=== PATIENT | male | born 1975 | race Caucasian/White ===

== ENCOUNTER → 2018-05-26 | Outpatient (CLI) | payer OTHER ==
[~2018-05-26] MED LIST: ASPI-586 PO; CARV12.52 PO; CHOL500050 PO; HYDR-34 PO; LISI10TA2 PO
--- NOTE | 2018-05-26 16:26 | Diagnostic Imaging Report ---
INDICATION: Hypertension. PA and lateral chest. FINDINGS: There are postop changes from CABG surgery. Heart size and pulmonary vascularity are normal. Lungs are clear. There are no effusions or pneumothoraces. IMPRESSION: No acute abnormalities in the chest. Dictated by: Dictated on workstation # [id number]
[2018-05-26 16:32] LABS: BUN/CREATININE RATIO 12; CALCIUM 9.2 MG/DL (8.5-10.1); CARBON DIOXIDE 22 MMOL/L (21-32); CHLORIDE 105 MMOL/L (98-107); CREATININE SERUM 0.82 MG/DL (0.60-1.30); GFR ESTIMATED > 60; GLUCOSE 108 MG/DL (70-105); POTASSIUM 4.1 MMOL/L (3.6-5.0); SODIUM 137 MMOL/L (135-145)
== END ==
LOC: RAD 15:55
PROVIDERS: ATTEND Internal Medicine Cardiovascular Disease
DX: I10 Essential (primary) hypertension (principal)
CPT/HCPCS: 36415; 71046; 80048

== ENCOUNTER 2018-07-23 07:18 | Outpatient (CLI) | payer OTHER ==
[~2018-07-23] VITALS: Ht 182.9 cm; Wt 142.4 kg
== END 2018-07-23 15:16 | disposition home or self-care (01) ==
LOC: PREOP 07:18
PROVIDERS: ATTEND Orthopaedic Surgery
DX: Z01.818 Encounter for other preprocedural examination (principal)
CPT/HCPCS: 87081

== ENCOUNTER 2018-07-30 06:12 | Day surgery (SDC) | payer OTHER ==
--- NOTE | 2018-07-21 12:01 | HISTORY AND PHYSICAL ---
DATE OF SERVICE: 07/30/2018 ADMISSION HISTORY AND PHYSICAL CHIEF COMPLAINT: Left carpal tunnel release. HISTORY: The patient is a 43-year-old right-hand dominant gentleman with complaints of left hand pain, worse at night and worse with repetitive activities. He underwent an EMG, which showed evidence of carpal tunnel syndrome. He tried extensive conservative measures and due to functional impairment and failure to improve with conservative measures, the patient elected to proceed with surgical intervention. REVIEW OF SYSTEMS: No chest pain, no shortness of breath, no dysuria. PAST MEDICAL HISTORY: Aortic stenosis, hypertension and hypothyroidism. PAST SURGICAL HISTORY: Aortic valve replacement, pulmonary valve replacement and tonsillectomy. FAMILY HISTORY: Significant for hypothyroidism and hyperlipidemia. PRIMARY CARE PROVIDER: Dr. Valentin. MEDICATIONS: 1. Carvedilol. 2. Lisinopril. 3. Aspirin. ALLERGIES: ARE TO SULFA. SOCIAL HISTORY: The patient drinks occasionally. Denies tobacco use. PHYSICAL EXAMINATION: GENERAL: The patient is well developed, well-nourished, in no acute distress. HEENT: Normocephalic and atraumatic. Pupils are equal, round and reactive to light. Oropharynx is clear. NECK: Supple, no lymphadenopathy. LUNGS: Clear to auscultation bilaterally. HEART: Regular rate and rhythm. ABDOMEN: Soft, nontender, nondistended. EXTREMITIES EXAM: The left wrist demonstrates positive Tinel's at the carpal tunnel with a positive Phalen's maneuver. He has decreased sensation in median distribution. No thenar atrophy is noted. No gross thenar weakness is noted. IMPRESSION: Left carpal tunnel syndrome. PLAN: Left open carpal tunnel release. The risks, benefits, options, ramifications and recovery were discussed at length with the patient. He understands and wishes to proceed. Job ID: [id number] DocumentID: [id number] Dictated Date: 07/21/2018 11:19:03 Manager Lvn Date: 07/21/2018 12:00:16 Dictated By: ASA FITCH MD
[~2018-07-30] VITALS: Ht 182.9 cm; Wt 142.4 kg
[2018-07-30] MEDS ORDERED: LACTATED RINGERS 1,000 ML IV PRN (06:50)
[2018-07-30] MEDS ORDERED: ceFAZolin 1,000 MG/10 ML (ANCEF) VIAL ONE (06:54)
[2018-07-30] MEDS ORDERED: NS (IVPB) 50 ML ONE (06:54)
[2018-07-30] MEDS ORDERED: ceFAZolin INJECTION 1,000 MG in NS (IVPB) 50 ML IV ONE (07:00)
[2018-07-30] MEDS ORDERED: PROPOFOL INJECTION 50 ML IV ONE (07:07)
[2018-07-30] MEDS ORDERED: MIDAZOLAM 2 MG/2 ML (VERSED) VIAL ONE (07:08)
[2018-07-30] MEDS ORDERED: KETAMINE HCL 100 MG/ML 5 ML VIAL ONE (07:08)
[2018-07-30] MEDS ORDERED: LIDOCAINE 1% INJ 20 ML 20 ML VIAL ONE (07:14)
[2018-07-30] MEDS ORDERED: BUPIVACAINE 0.5% 30 ML (SENSORCAINE) VIAL ONE (07:14)
[2018-07-30] MEDS ORDERED: CATHETER FLUSH 10 ML SYR IV PRN (07:15)
--- NOTE | 2018-07-30 07:22 | Progress Note-Pre Operative ---
Pre-Operative Progress Note H&P Reviewed The H&P was reviewed, patient examined and no changes noted. Date Seen by Provider: Jul 30, 2018 Time Seen by Provider: 07:05 Date H&P Reviewed: Jul 30, 2018 Time H&P Reviewed: 07:05 Pre-Operative Diagnosis: left carpal tunnel syndrome ASA FITCH MD Jul 30, 2018 07:22
--- NOTE | 2018-07-30 07:24 | Progress Note-Post Operative ---
Post-Operative Progess Note Surgeon (s)/Asset Management Analyst (s) Surgeon ASA FITCH MD Asset Management Analyst: Deep Peng Pre-Operative Diagnosis left carpal tunnel syndrome Post-Operative Diagnosis left carpal tunnel syndrome Procedure & Operative Findings Date of Procedure 07/30/18 Procedure Performed/Findings left carpal tunnel release Anesthesia Type MAC plus local Estimated Blood Loss Estimated blood loss (mL): minimal Specimens/Packing Specimens Removed none Packing: none ASA FITCH MD Jul 30, 2018 07:24
[2018-07-30] MEDS ORDERED: HYDROcodone/APAP 7.5 MG/325 MG (LORTAB, LORCET PLUS) TABLET PO PRN (07:30)
--- NOTE | 2018-07-30 08:20 | OPERATIVE REPORT ---
DATE OF SERVICE: 07/30/2018 PREOPERATIVE DIAGNOSIS: Left carpal tunnel syndrome. POSTOPERATIVE DIAGNOSIS: Left carpal tunnel syndrome. PROCEDURE: Left open carpal tunnel release. SURGEON: Julio Fitch MD. ACTIVITIES ASSISTANT: MERY Burden, who assisted throughout the procedure and closed the incision. ANESTHESIA: Monitored anesthesia care plus local by Camilla Knight CRNA. TOURNIQUET TIME: Four minutes at 250 mmHg. ESTIMATED BLOOD LOSS: Minimal. DRAINS: None. COMPLICATIONS: None. POSTOPERATIVE PLAN: Routine protocol. The patient was transferred to the recovery room awake and in stable condition. STATEMENT OF MEDICAL NECESSITY: The patient is a 43-year-old right hand dominant gentleman with complaints of left hand pain and paresthesias. He had a positive Tinel's at the carpal tunnel with positive Phalen's maneuver. He had tried rest, activity modifications and anti-inflammatories without relief. Due to functional impairment, the patient did proceed with surgical intervention. DESCRIPTION OF PROCEDURE: After risks and benefits of procedure were discussed and questions were answered, an informed consent was signed and placed on the chart. The operative site was confirmed in the preoperative holding area and initialed by the surgeon. The patient was transferred to the operating room. After adequate levels of monitored anesthesia care obtained, a timeout was called confirming the operative site. The left upper extremity was then prepped and draped in the usual sterile fashion. The incision site was infiltrated with a combination of plain lidocaine and plain Marcaine. With the arm elevated, tourniquet was inflated to 250 mmHg, a longitudinal incision was made in line with the radial border of the ring finger over the transverse carpal ligament. The underlying soft tissues were sharply dissected exposing the roof of the carpal tunnel, which was then incised by pushing through with the scalpel blade. The median nerve was identified and carefully protected throughout the procedure and intact at the conclusion of the procedure. This was confirmed fully released distally and proximally transverse carpal ligament spread above and below with dissection scissors and then while carefully protecting the median nerve was incised. This was confirmed fully released with a freer. The tourniquet was deflated for a total tourniquet time of four minutes. Pressure was used for hemostasis. Wound was copiously irrigated. Skin was closed with 4-0 nylon in a running alternating horizontal mattress fashion. A sterile dressing and brace were applied. The patient was transferred to the recovery room awake and in stable condition. Job ID: [id number] DocumentID: [id number] Dictated Date: 07/30/2018 08:04:48 Medical Aides Teacher Date: 07/30/2018 08:19:55 Dictated By: JULIO FITCH MD
[2018-07-30 08:45] VITALS: BP 144/90
[2018-07-30 08:50] VITALS: BP 144/90
[2018-07-30] MEDS ORDERED: HYDR-3816 PO (08:51)
[2018-07-30 09:15] VITALS: BP 141/80
--- NOTE | 2018-07-30 11:34 | Anesthesia-General Post-Op ---
MAC Patient Condition Mental Status/LOC: Same as Preop Cardiovascular: Satisfactory Nausea/Vomiting: Absent Respiratory: Satisfactory Pain: Controlled Complications: Absent Post Op Complications Complications None Follow Up Care/Instructions Patient Instructions None needed. Anesthesiology Discharge Order Discharge Order Patient is doing well, no complaints, stable vital signs, no apparent adverse anesthesia problems. No complications reported per nursing. PRINCE FERMIN CRNA Jul 30, 2018 11:34
== END 2018-07-30 09:30 | disposition home or self-care (01) ==
LOC: SDC 06:12
PROVIDERS: ATTEND Orthopaedic Surgery
DX: G56.02 Carpal tunnel syndrome, left upper limb (principal); I10 Essential (primary) hypertension; E03.9 Hypothyroidism, unspecified; Z95.2 Presence of prosthetic heart valve; Z79.899 Other long term (current) drug therapy; Z79.82 Long term (current) use of aspirin; E66.01 Morbid (severe) obesity due to excess calories; Z68.41 Body mass index [BMI] 40.0-44.9, adult